=== PATIENT | male | born 1955 | race Caucasian/White ===

== ENCOUNTER 2019-12-27 08:14 | Outpatient (CLI) | payer MEDICARE, BC ==
[2019-12-27 15:54] LABS: #Basophils 0.1 thou/uL (0.0-0.2); #Eosinphils 0.3 thou/uL (0.0-0.7); #Lymphocytes 1.5 thou/uL (1.20-3.40); #Monocytes 0.4 thou/uL (0.11-0.59); %Eosinophils 4.8 % (0.0-10.0); %Lymphocytes 28.5 % (21.0-51.0); %Monocytes 7.7 % (0.0-10.0); Hemoglobin 15.6 g/dL (14.0-18.0); Mean Corpuscular HGB CONC 35.6 g/dL (32.0-36.0); Mean Corpuscular Hemoglobin 32.5 pg (27.0-31.0); Mean Corpuscular Volume 91.2 fL (78.0-98.0); Mean Platelet Volume 7.5 fL (7.4-10.4); Platelet Count 243 thou/uL (130-400); RBC Distribution Width 11.4 % (11.5-14.5); Red Blood Cell (RBC) Count 4.82 mill/uL (4.70-6.10); White Blood Cell (WBC) Count 5.2 thou/uL (4.8-10.8)
[2019-12-27 15:59] LABS: Prothrombin Time 13.1 SEC (12.0-14.7)
== END 2019-12-27 08:15 | disposition home or self-care (01) ==
LOC: LABBT 08:14
PROVIDERS: ATTEND Orthopaedic Surgery
DX: Z01.818 Encounter for other preprocedural examination (principal); M19.011 Primary osteoarthritis, right shoulder
CPT/HCPCS: 85025; 85610

== ENCOUNTER 2019-12-30 05:55 | Inpatient (IN) | payer MEDICARE, BC ==
[2019-12-27 14:09] VITALS: BMI 29.2
[2019-12-30] MEDS ORDERED: Tranexamic Acid 1,000 MG/10 ML VIAL ONE ×2 (06:06→10:27)
[2019-12-30] MEDS ORDERED: Vancomycin 1.5 GRAM/300 ML BAG 1.5 GM/300 ML BAG ONE (06:06)
[2019-12-30] MEDS ORDERED: Sodium Chloride 0.9% 100 ML ONE (06:06)
[2019-12-30] MEDS ORDERED: Midazolam HCl 2 mg/2 ml Vial ONE ×2 (06:21→06:31)
[2019-12-30] MEDS ORDERED: Fentanyl 100 MCG/2 ML VIAL ONE ×3 (06:21→10:12)
[2019-12-30] MEDS ORDERED: Lidocaine 1% (PF) 30 ML VIAL ONE (06:31)
[2019-12-30 06:59] LABS: Anion Gap 11 mmol/L (10-20); BUN (Urea Nitrogen) 23 mg/dL (8.4-25.7); Calc. Creatinine Clearance 90 mL/min (70-130); Carbon Dioxide 26 mmol/L (23-31); Chloride 106 mmol/L (98-107); Estimated GFR-MDRD 66; Glucose 89 mg/dL (80-115); Sodium 139 mmol/L (136-145)
[2019-12-30] MEDS ORDERED: Ondansetron PF 4 MG/2 ML Vial IVP PRN ×2 (07:13→11:24)
[2019-12-30] MEDS ORDERED: Promethazine HCl 25 MG/ML VIAL IM PRN ×2 (07:13→08:36)
[2019-12-30] MEDS ORDERED: traMADol HCl 50 MG TAB PO PRN ×4 (07:13→11:24)
[2019-12-30] MEDS ORDERED: Zolpidem Tartrate 5 MG TAB PO PRN ×2 (07:13→11:24)
[2019-12-30] MEDS ORDERED: Acetaminophen 325 MG TAB PO PRN ×2 (07:13→11:24)
[2019-12-30] MEDS ORDERED: Fentanyl 100 MCG/2 ML VIAL IV PRN (07:13)
[2019-12-30] MEDS ORDERED: HYDROcodone/Acetaminophen 10/325 mg Tablet PO PRN ×4 (07:13→11:24)
[2019-12-30] MEDS ORDERED: Ropivacaine 0.2% 550 ML 550 ML NERVE BLCK SCH (07:13)
[2019-12-30] MEDS ORDERED: Ondansetron HCl/PF 4 MG/2 ML Vial IVP PRN (08:36)
[2019-12-30] MEDS ORDERED: Promethazine HCl 25 MG/ML VIAL SLOW IVP PRN (08:36)
[2019-12-30] MEDS ORDERED: Ondansetron PF 4 MG/2 ML Vial ONE ×2 (10:50→15:42)
[2019-12-30] MEDS ORDERED: Methocarbamol 500 MG TAB PO PRN (11:24)
[2019-12-30] MEDS ORDERED: diphenhydrAMINE 50 MG CAP PO PRN (11:24)
[2019-12-30] MEDS ORDERED: Bisacodyl 10 MG SUPP PR PRN (11:24)
[2019-12-30] MEDS ORDERED: Milk Of Magnesia 30 ML UDCUP PO PRN (11:24)
[2019-12-30] MEDS ORDERED: Ondansetron ODT 4 MG TAB PO PRN (11:24)
[2019-12-30] MEDS ORDERED: Fluticasone Propionate Nasal Spray 16 gm Bottle NASAL PRN (11:30)
[2019-12-30] MEDS: CEFAZOLIN 2 GM in Premix Bag 1 BAG IVPB SCH ×2 (13:30→21:58)
[2019-12-30] MEDS: Dextrose 5 %-0.45 % NaCl 1,000 ML IV SCH (13:30)
[2019-12-30] MEDS: Ketorolac Tromethamine 30 MG/ML VIAL IVP SCH ×3 (13:30→23:44)
--- NOTE | 2019-12-30 13:39 | OP ---
DATE OF PROCEDURE: 12/30/2019 PREOPERATIVE DIAGNOSES: 1. Right shoulder osteoarthritis. 2. Biceps tendinopathy. POSTOPERATIVE DIAGNOSES: 1. Right shoulder osteoarthritis. 2. Biceps tendinopathy. PROCEDURES PERFORMED: 1. Right total shoulder arthroplasty. 2. Biceps tenodesis. UX RESEARCH ASSOCIATE: Aneesh Pryor PA-C ANESTHESIOLOGIST: Shyann Michael MD ANESTHESIA: The patient received general endotracheal intubation with interscalene block. ESTIMATED BLOOD LOSS: 250 mL. TOURNIQUET TIME: None. IMPLANTS: Tornier PerFORM large 50 glenoid with a Flex 52 x 19 head and a Flex 5B stem. ANTIBIOTICS: Ancef 2 g, vancomycin 1.5 g, and TXA 1 g. COMPLICATIONS: None. HISTORY OF PRESENT ILLNESS: Mr. Huffman is a pleasant 64-year-old male, who presented with previous history of shoulder arthritis, replaced his left shoulder. Although, the patient failed conservative measures, to include, pain, scar, bleeding, infection, damage to vital structures, decreased range of motion and strength, continued pain despite surgical intervention, damage to vital structures, loss of life or limb. The patient understood the risks of Chandra deformity. He understood the risks and benefits of the procedure and elected to proceed. DESCRIPTION OF PROCEDURE: Time-out was performed designating the patient's right upper extremity as the operative site based on site, consents, and marking. After time-out, the patient's right upper extremity was prepped and draped in sterile fashion. After he was prepped and draped in beach-chair position with bony prominences were well padded, deltopectoral incision down through skin, found the vein, took it laterally between the pec and the deltoid, exposed the humerus, came down the biceps laterally, followed into the groove. I then cut the biceps at its base, tagged it. We came back to the lesser. We used the LTO, taking a thin osteotome to take a wedge of bone to help with our lesser osteotomy just off the bicipital groove. We used a #5 Ethibond after we peeled the capsule, any remnant cuff that was still attached off to expose the humerus. We removed the inferior osteophyte. We looked at our articular margin, cut our first cut. We had brought the humerus into position. With opening awl, we did our broach and we broached up to size 4. We reamed and actually cut a little section posteriorly to help with our position, removed everything. We cleaned all it up. We then placed our manhole cover, then completely put our Darrach and did a 360 degree release of the labrum and biceps. Being happy with our release, we sized, felt like a 50 large was best fit, drilled our center hole, reamed biplane. We then came back and drilled our 3 pegs, trialed and trial was actually very difficult to get out. I am happy with overall position and alignment and facing, we then removed the implant. We cemented all [address] and came back to the humerus. We sized to 52. We rotated high offset to be more superior or posterior for coverage of the bone. We felt like we had to move this 1 to 2 mm step-off from the articular margin of the rotator cuff. I liked the overall coverage of the head anterior to posterior. I had a 50-degree translation posteriorly after we let the cement dry as well as good abduction and internal rotation. I was happy and overall pleased with the position. We then removed the implant, placed 3 drill holes on the bicipital groove. With #5 Ethibond, used the whipstitch that was medialized to the LTO. We washed, placed our final implant in place, impacted in position. I placed one more stitch #5 drill hole through the greater tuberosity and through the cuff to help with like a double-row equivalent to come in across the subscapularis. We reduced the shoulder, passed the inferior 2 sutures with whipstitches and sewed the LTO back down to its footprint, cut the stitches. We used another stitch to pass through the superior cuff with #5, sewing it down in place. We then closed the interval with #2 Ethibond and cut those stitches. We came back, took the biceps tendon and passed it through the remnant cuff on both sides, #1 Ethibond and then we passed one through and through on both sides of the groove and passed it into the biceps and cut. We used the 2 limbs , the medial limb from the subscapularis and greater tuberosity limbs were oversewed at the top to help with like a double-row equivalent, cut the suture limbs. Good overall rotation, like the position and translation, we washed, controlled bleeding, closed the deltopectoral interval and closed the subcu and skin with zhen. The patient will have passive range of motion, received 24 hours of antibiotics. If he feels good tomorrow, he can go home on pain medications. Job ID: [id number] [id number]
[2019-12-30] MEDS ORDERED: Rocuronium Bromide 10 MG/ML (10ML VIAL) ONE (15:42)
[2019-12-30] MEDS ORDERED: Lidocaine 1% PF 5 ML VIAL ONE (15:42)
[2019-12-30] MEDS ORDERED: EPHEDRINE 25 MG/5 ML SYRINGE ONE (15:42)
[2019-12-30] MEDS ORDERED: PROPOFOL 200 MG/20 ML VIAL ONE (15:42)
[2019-12-30] MEDS ORDERED: Dexamethasone 20 MG/5 ML VIAL ONE (15:42)
[2019-12-30] MEDS ORDERED: Glycopyrrolate 0.2 MG/ML 5 ML SYRINGE ONE (15:42)
[2019-12-30] MEDS ORDERED: PHENYLEPHRINE-NS 100 MCG/ML 10 ML SYRINGE ONE (15:42)
[2019-12-30] MEDS ORDERED: Ropivacaine 0.2% HCl/PF (40 MG/20 ML VIAL) ONE (15:46)
[2019-12-30] MEDS ORDERED: Ropivacaine 0.5% HCl/PF (150 MG/30 ML VIAL) ONE (15:46)
[2019-12-30] MEDS ORDERED: Vancomycin HCl 1.5 GM in Sodium Chloride 0.9% 250 ML 300 ML IVPB SCH (18:00)
[2019-12-30] MEDS ORDERED: Vancomycin 1.5 GRAM/300 ML BAG 1.5 GM in Premix Bag 1 BAG IVPB SCH (18:00)
[2019-12-30] MEDS: Famotidine 20 MG TAB PO SCH (19:43)
[2019-12-30] MEDS: Mupirocin 2% Ointment 22 GM Tube TOP SCH (19:44)
[2019-12-30] MEDS ORDERED: Melatonin 3 MG TAB PO SCH (21:00)
[2019-12-30] MEDS ORDERED: Losartan 25 MG TAB PO SCH (21:00)
[2019-12-30] MEDS ORDERED: CeleCOXIB 100 MG CAP PO SCH (21:00)
[2019-12-30] MEDS ORDERED: Atorvastatin Calcium 20 MG TAB PO SCH (21:00)
[2019-12-30] MEDS ORDERED: Metamucil PACK PO SCH (21:00)
[2019-12-31] MEDS: Ketorolac Tromethamine 30 MG/ML VIAL IVP SCH (05:17)
[2019-12-31] MEDS: Dextrose 5 %-0.45 % NaCl 1,000 ML IV SCH (05:43)
[2019-12-31 07:57] VITALS: BP 124/80; TEMP 98.5
[2019-12-31] MEDS: Famotidine 20 MG TAB PO SCH (08:17)
[2019-12-31] MEDS: Mupirocin 2% Ointment 22 GM Tube TOP SCH (08:18)
== END 2019-12-31 11:40 | disposition home or self-care (01) | DRG 483 ==
LOC: SJJU 05:55 → SURG A 11:04
PROVIDERS: ADMIT Orthopaedic Surgery; ATTEND Orthopaedic Surgery
PROC: 0RRJ0JZ Replacement of Right Shoulder Joint with Synthetic Substitute, Open Approach (ICD-10-PCS; principal; 2019-12-30)
DX: M19.011 Primary osteoarthritis, right shoulder (principal); I10 Essential (primary) hypertension; E78.5 Hyperlipidemia, unspecified; G47.30 Sleep apnea, unspecified; J30.2 Other seasonal allergic rhinitis; N40.0 Benign prostatic hyperplasia without lower urinary tract symptoms; Z79.899 Other long term (current) drug therapy; Z79.82 Long term (current) use of aspirin
CPT/HCPCS: 80048; 85025; 85610; 93005; A4306; C1713; J0690; J1100; J1885; J2001; J2250; J2405; J2704; J2795; J3010; J3490

== ENCOUNTER 2024-04-15 06:37 | Day surgery (SDC) | payer MEDICARE, BC ==
[2024-04-14 08:51] VITALS: BMI 29.2
[~2024-04-15 06:37] MED LIST: Fluorouracil 100 MG, Enoxaparin 25 MG, EPINEPHrine 0.3 MG in Ophthalmic Irrigation Solu... IRR SCH
[2024-04-15] MEDS ORDERED: PHENYLephrine 2.5% Ophth Soln 15 ml Bottle ONE (07:04)
[2024-04-15] MEDS ORDERED: Midazolam HCl 2 mg/2 ml Vial ONE (07:23)
[2024-04-15] MEDS ORDERED: fentaNYL 50 mcg/mL 1 mL Vial ONE (07:23)
[2024-04-15] MEDS ORDERED: PROPOFOL 20 ML ONE (07:23)
[2024-04-15] MEDS ORDERED: Enoxaparin 30 MG (0.3 mL) SYRINGE ONE (07:55)
[2024-04-15] MEDS ORDERED: Lidocaine 4% PF 5 ML AMP ONE (07:55)
[2024-04-15] MEDS ORDERED: Triamcinolone 40 MG/ML VIAL ONE (07:55)
[2024-04-15] MEDS ORDERED: CEFAZOLIN 1 GM VIAL ONE (07:55)
[2024-04-15] MEDS ORDERED: Bupivacaine 0.75% 10 ML VIAL ONE (07:55)
[2024-04-15] MEDS ORDERED: Phenylephrine 2.5% Ophth Soln 5 ML BOT FS SCH (09:00)
[2024-04-15] MEDS ORDERED: Cyclopentolate 1% Opth Drop 2 ML BOT FS SCH (09:00)
== END 2024-04-15 09:23 | disposition home or self-care (01) ==
LOC: SDC 06:37
PROVIDERS: ATTEND Ophthalmology Retina Specialist
PROC: 08T53ZZ Resection of Left Vitreous, Percutaneous Approach (ICD-10-PCS; principal; 2024-04-15)
DX: H33.022 Retinal detachment with multiple breaks, left eye (principal)
CPT/HCPCS: 67025; 67108; J3010; J0171; J0690; J1650; J2250; J2704; J3301; J3490; J9190